=== PATIENT | male | born 1980 ===

== ENCOUNTER 2016-10-28 15:21 | Emergency (ER) | payer SELFPAY ==
[2016-10-28 15:26] VITALS: BP 137/92; PULSE 77; RESP 18; TEMP 97.1; O2SAT 98
[2016-10-28] MEDS ORDERED: TDAP Vaccine 0.5 mL Syr IM ONE (15:28)
[2016-10-28] MEDS ORDERED: Lidocaine 1% Inj (20ml) ONE (15:32)
--- NOTE | 2016-10-28 15:35 | ED PDOC ---
Upper Extremity Pain/Injury Time Seen by Provider: 10/28/16 15:27 Chief Complaint (Nursing): Upper Extremity Problem/Injury Chief Complaint (Provider): Right Hand injury History Per: Patient History/Exam Limitations: no limitations Onset/Duration Of Symptoms: Hrs (x2) Current Symptoms Are (Timing): Still Present Quality: "Pain" Additional History Per: Patient Additional Complaint(s): Flo Rice, a 36 years old male, presents to the ED on 10/28/2016 for evaluation of laceration to right hand approximately 1-2 hours ago. Patient reports cut with glass at work. Dressing applied at work. Unknown tetanus status. No other medical complaints. Past Medical History Reviewed: Historical Data, Nursing Documentation, Vital Signs Vital Signs: Last Vital Signs Temp 97.1 F L 10/28/16 15:24 Pulse 77 10/28/16 15:24 Resp 18 10/28/16 15:24 BP 137/92 H 10/28/16 15:24 Pulse Ox 98 10/28/16 15:24 - Medical History PMH: No Chronic Diseases - Family History Family History: States: Unknown Family Hx - Home Medications Home Medications: Ambulatory Orders Medication Instructions Recorded No Known Home Med 11/04/16 - Allergies Allergies/Adverse Reactions: Allergies Allergy/AdvReac Type Severity Reaction Status Date / Time No Known Allergies Allergy Verified 10/28/16 15:24 Review of Systems ROS Statement: Except As Marked, All Systems Reviewed And Found Negative Skin: Positive for: Other (rt hand laceration ) Physical Exam - Reviewed Nursing Documentation Reviewed: Yes Vital Signs Reviewed: Yes - Physical Exam Appears: Positive for: Well, Non-toxic, Uncomfortable Skin: Positive for: Normal Color (except 3.5 cm linear, partial thickness laceration to rt palmar hand), Warm Pulses-Radial (R): 2+ Extremity: Positive for: Normal ROM (rt wrist, digits), Capillary Refill (<2 seconds). Negative for: Deformity, Swelling - ECG O2 Sat by Pulse Oximetry: 98 (RA) Pulse Ox Interpretation: Normal Medical Decision Making Medical Decision Makin:27 Initial Impression: Right hand laceration Initial Plan: * TDAP * Wound care/suture. see procedure note. splint applied -no indication for xreay at this time-laceration not deep and pt states no fb possible in wound. pt opts to not have xray Patient is feeling better, is medically stable, and requires no further treatment in the ED at this time. Counseling was provided and all questions were answered regarding diagnosis and need for follow up with PMD. There is agreement to discharge plan. Return if symptoms persist or worsen. Scribe Attestation: Documented by Nazario Madison, acting as a scribe for Christy Molina PA-C. Provider Scribe Attestation: All medical record entries made by the Scribe were at my direction and personally dictated by me. I have reviewed the chart and agree that the record accurately reflects my personal performance of the history, physical exam, medical decision making, and the department course for this patient. I have also personally directed, reviewed, and agree with the discharge instructions and disposition. Procedures - Time-Out Type of Procedure: Suture Site of Procedure: Right hand Correct Patient: Yes Correct Procedure: Yes Correct Site Marked: Yes X-Ray Marked: NA Medication Recon: Yes PA/Tech: Jesse - Laceration/Wound Repair Right Hand Wound Length (cm): 3.5 Wound's Depth, Shape: linear Wound Explored: no foreign body removed Irrigated w/ Saline (ccs): 250 Betadine Prep?: Yes Anesthesia: 1% Lidocaine Wound Debrided: minimal Wound Repaired With: Sutures Suture Size/Type: 4:0, proline Number of Sutures: 8 Wound Complexity: Simple Sterile Dressing Applied?: Yes Splint Applied?: Yes Sling Applied?: No Disposition - Clinical Impression Clinical Impression: Laceration - Patient ED Disposition Is Patient to be Admitted: No Counseled Patient/Family Regarding: Diagnosis, Rx Given - Disposition Referrals: Daniel Feliz MD [Medical Doctor] - Disposition: Routine/Home Disposition Time: 20:53 Condition: STABLE Additional Instructions: Do not wet wound keep splint to prevent sutures from opening do not apply gauze too tightly to wound to prevent wound from being too wet or soft-this will prevent healing in a timely fashion take all of your antibiotics have sutures looked at or removed in 8 days by your doctor or return to the emergency department Instructions: Care For Your Stitches (ED), Laceration (ED) Forms: [facility] ED School/Work Excuse Print Language: ENGLISH
== END 2016-10-28 17:23 | disposition home or self-care (01) ==
LOC: H.ER 15:21
DX: S61.411A Laceration without foreign body of right hand, initial encounter (principal); W25.XXXA Contact with sharp glass, initial encounter; Y99.0 Civilian activity done for income or pay

== ENCOUNTER 2016-11-04 18:21 | Emergency (ER) | payer SELFPAY ==
[2016-11-04 18:25] VITALS: BP 135/79; PULSE 82; RESP 18; TEMP 96.7; O2SAT 99
--- NOTE | 2016-11-04 19:25 | ED PDOC ---
HPI: Wound Care - HPI Time Seen by Provider: 11/04/16 18:30 Chief Complaint (Nursing): Wound Check Chief Complaint (Provider): suture removal History Per: Patient Exam Limitations: no limitations Additional Complaint(s): Flo Rice is a 36 year old male, with no previous medical history, who presents to the ED for the removal of sutures he had placed in on 10/28/16. Pt denies any fevers, chills or drainage. PMD: none provided Past Medical History Reviewed: Historical Data, Nursing Documentation, Vital Signs Vital Signs: Last Vital Signs Temp 96.7 F L 11/04/16 18:23 Pulse 82 11/04/16 18:23 Resp 18 11/04/16 18:23 BP 135/79 11/04/16 18:23 Pulse Ox 99 11/04/16 18:23 - Medical History PMH: No Chronic Diseases - Family History Family History: States: Unknown Family Hx - Home Medications Home Medications: Ambulatory Orders Medication Instructions Recorded No Known Home Med 11/04/16 - Allergies Allergies/Adverse Reactions: Allergies Allergy/AdvReac Type Severity Reaction Status Date / Time No Known Allergies Allergy Verified 10/28/16 15:24 Review of Systems ROS Statement: Except As Marked, All Systems Reviewed And Found Negative Constitutional: Negative for: Fever, Chills Physical Exam - Reviewed Nursing Documentation Reviewed: Yes Vital Signs Reviewed: Yes - Physical Exam Appears: Positive for: Well, Non-toxic, No Acute Distress Skin: Positive for: Normal Color, Warm, DRY Extremity: Positive for: Normal ROM. Negative for: Tenderness, Deformity, Swelling Neurologic/Psych: Positive for: Alert, Oriented - ECG O2 Sat by Pulse Oximetry: 99 (RA) Pulse Ox Interpretation: Normal Medical Decision Making Medical Decision Making: Initial Impression:Suture removal Initial Plan: * suture removal * wound check * disposition 11 blade used along with suture removal kit to remove a total of 8 sutures from the medial aspect of the right hand. Wound healed well with no erythema or drainage. Pt tolerated procedure well with no immediate complications. Scribe Attestation: Documented by Pia Stallings, acting as a scribe for Maribel Chavez PA-C. Provider Scribe Attestation: All medical record entries made by the Scribe were at my direction and personally dictated by me. I have reviewed the chart and agree that the record accurately reflects my personal performance of the history, physical exam, medical decision making, and the department course for this patient. I have also personally directed, reviewed, and agree with the discharge instructions and disposition. Disposition - Clinical Impression Clinical Impression: Visit for suture removal - Patient ED Disposition Is Patient to be Admitted: No - Disposition Referrals: [facility] [Outside] Disposition: Routine/Home Disposition Time: 19:25 Condition: STABLE Instructions: Stitches Removal (ED) Print Language: NAURUAN
== END 2016-11-04 19:26 | disposition home or self-care (01) ==
LOC: H.ER 18:21
DX: Z48.02 Encounter for removal of sutures (principal)